=== PATIENT | male | born 1930 | race Caucasian/White ===

== ENCOUNTER 2019-05-05 08:07 | Day surgery (SDC) | payer MEDICARE ==
--- NOTE | 2019-04-29 10:49 | HP ---
AMENDED REPORT NOW INCLUDES DESIGNATED COSIGNER PREOPERATIVE HISTORY AND PHYSICAL: DATE OF SURGERY/ADMISSION: 05/05/19 DATE OF OFFICE VISIT/ENCOUNTER: 04/27/19 ATTENDING SURGEON: Chasity Salcido MD * (DICTATED BY KELLI DE LA GARZA) PROCEDURE: Left wrist carpal tunnel release, ulnar nerve decompression at left elbow. HISTORY OF PRESENT ILLNESS: This is an 88-year-old male who complains of numbness and tingling in his left arm. Recently, he had a nerve conduction study that showed an ulnar neuropathy of the left elbow and a moderate-to- severe carpal tunnel syndrome at the left wrist. When he uses his left arm, especially for doing activities around the yard like mowing the grass, this aggravates his symptoms. If he lets his arm relaxed, he feels a little bit better. He feels numbness in his hand and pain up his arm when he rests his elbow on something. He also feels numbness in his hand when leaning on his elbow. He had a carpal tunnel release on the right side in the past and has done quite well with that. He has now consented to proceed with surgical intervention for his left arm. PAST MEDICAL HISTORY: 1. History of prostate cancer. 2. Extranodal catheter following prostatectomy. 3. Memory problems. PAST SURGICAL HISTORY: 1. Prostatectomy. 2. Right carpal tunnel release x2. 3. Right shoulder arthroscopy. 4. Hernia repair. CURRENT MEDICATIONS: 1. Nabumetone b.i.d. 2. Aricept 10 mg daily. 3. Multivitamin daily. 4. Namenda 10 mg daily. 5. AREDS 2 tabs b.i.d. ALLERGIES: CIPROFLOXACIN, reaction unknown. FAMILY MEDICAL HISTORY: Cancer, diabetes. SOCIAL HISTORY: The patient is retired. He is a former smoker, he quit in 1969 , prior to that he smoked a pack per day for 20 years. He denies recreational drug use and does not drink alcohol. REVIEW OF SYSTEMS: Negative for general, cephalic, cardiovascular, respiratory , GI, , other musculoskeletal, integumentary, endocrine, neurologic, and hematologic symptoms. Infectious Disease: Negative for MRSA, hepatitis C, HIV. PHYSICAL EXAMINATION GENERAL: Well-developed, well-nourished 88-year-old male, in no acute distress. VITAL SIGNS: Height 5 feet 7 inches, weight 188 pounds, pulse rate 66, blood pressure 128/58. HEENT: Normocephalic, atraumatic. Pupils are equal, round, and reactive to light and accommodation. Extraocular movements are intact. Throat is clear. NECK: Supple. No palpable lymph nodes. PULMONARY: Lungs are clear to auscultation bilaterally. No wheezes, rales, or rhonchi. CARDIOVASCULAR: Regular rate and rhythm. S1, S2. No murmurs, rubs, or gallops. No edema. ABDOMEN: Positive bowel sounds, soft, nontender. MUSCULOSKELETAL: On exam of his left upper extremity, he has positive Tinel sign at the median nerve at the wrist. He has first dorsal space interosseous wasting and weakness with finger abduction. He also has weakness with thumb abduction. Negative Tinel sign at the ulnar nerve at the wrist, but he has a slightly positive Tinel sign of the ulnar nerve at the elbow. He has good motion in his elbow, in wrist, and fingers. NEUROLOGIC: Alert and oriented x3. Cranial nerves II through XII are intact. SKIN: Intact. IMAGING STUDIES: EMG nerve conduction study shows carpal tunnel syndrome at the left wrist and ulnar neuropathy at the left elbow. IMPRESSION: As above. PLAN: The patient is scheduled to undergo a left wrist carpal tunnel release, ulnar nerve decompression at the left elbow with Dr. Salcido on 05/05/19. He will return to the office 10 days postop for followup and suture/staple removal. A prescription for Vona was e-scribed to the patient's pharmacy for postoperative pain management. KELLI DE LA GARZA [id number]/[facility] #: [id number] TRUE
[~2019-05-05 08:07] MED LIST: Buffered Lidocaine 1% SYRIN* 1 ML/SYRINGE INTRADERM ONE; Dexamethasone IV* 4 MG/ML 1 ML (4 MG) IV SLOW PU ONE; Famotidine IV* 10 MG/ML 2 ML (20 mg) IV ONE; Lactated Ringers 1000 ML Bag* 1,000 ML IV SCH
[2019-05-05] MEDS ORDERED: Dexamethasone IV* 4 MG/ML 1 ML (4 MG) ONE (08:12)
[2019-05-05] MEDS ORDERED: Famotidine IV* 10 MG/ML 2 ML (20 mg) ONE (08:13)
[2019-05-05] MEDS ORDERED: ceFAZolin 2 GM in NS PREMIX(*) 2 GM/100 ML BAG IVPB ONE (08:13)
[2019-05-05] MEDS ORDERED: fentaNYL* 50 MCG/ML 2 ML VIAL (100 MCG VIAL) ONE (08:48)
[2019-05-05] MEDS ORDERED: Lidocaine 1% INJ* 10 MG/ML 30 ML SDV ONE (09:20)
[2019-05-05] MEDS ORDERED: Bupivacaine 0.5% SDV PF* 30ML VIAL ONE (09:21)
[2019-05-05] MEDS ORDERED: Propofol* 10 MG/ML 20 ML BTL ONE (09:53)
[2019-05-05] MEDS ORDERED: Lidocaine 2% PF * 5 ML VIAL ONE (09:53)
[2019-05-05] MEDS ORDERED: Naloxone* 0.4 MG/ML 1 ML VIAL IV PRN (09:55)
[2019-05-05 10:32] VITALS: BP 115/48
--- NOTE | 2019-05-05 17:20 | OP ---
DATE OF OPERATION: 05/05/19 - [facility] DATE OF : [birth year] SURGEON: Chasity Salcido MD. ASSISTANT MECHANIC: KELLI Valles. ANESTHESIA: Local MAC. PRE-OP DIAGNOSES: Carpal tunnel syndrome on the left and ulnar nerve compression of the left elbow. POST-OP DIAGNOSES: Carpal tunnel syndrome on the left and ulnar nerve compression of the left elbow. OPERATIVE PROCEDURE: Left carpal tunnel release and ulnar nerve decompression at the elbow. ESTIMATED BLOOD LOSS: Zero. TOURNIQUET TIME: About 40 minutes. INDICATION FOR PROCEDURE: Jaylon is an 88-year-old man who has numbness and tingling in his left hand. Nerve conduction studies show ulnar nerve compression of the left elbow and median nerve compression at the left wrist. He presents for left carpal tunnel release at the wrist and left ulnar nerve decompression of the elbow. DESCRIPTION OF PROCEDURE: The patient was brought to the operating room, was given a sedation anesthetic and a local infiltration total of 20 cc of 1% plain lidocaine, half at the left hand and half at the left elbow. The skin of his upper extremity was prepped and draped in the usual sterile fashion. The hand and forearm were exsanguinated and the tourniquet elevated to 250 mmHg. A longitudinal incision was made in the palm in line with the ring finger. We dissected through the subcutaneous tissue down to the transverse carpal ligament. The ligament was divided sharply with a knife and then more proximally with the scissors. The nerve was dissected free from the surrounding tissue and there was an area of moderate compression at the mid portion of the ligament. The wound was irrigated and the skin edges were reapproximated with 4-0 nylon suture. Next, a curvilinear incision was made centered between the medial epicondyle on the tip of the olecranon process. We dissected through the subcutaneous tissue down to the ulnar nerve more proximal to the elbow joint and was completely released proximally and then through the cubital tunnel and into the FCU muscle. The superficial and deep portion of the FCU fascia was divided. The medial intermuscular septum was divided as well. The majority of the compression was through the cubital tunnel. The wound was irrigated and the subcutaneous tissue was closed with 3-0 Vicryl suture. The skin edges were reapproximated with 4-0 nylon suture. The wounds were dressed with Xeroform, 4x4, Webril, and an Froylan wrap. The patient tolerated the procedure well and was brought to the recovery room in good condition. [id number]/[facility] #: [id number] TRUE
== END 2019-05-05 10:55 | disposition home or self-care (01) ==
LOC: OREAST 08:07
PROVIDERS: ATTEND Orthopaedic Surgery
DX: G56.02 Carpal tunnel syndrome, left upper limb (principal); G56.22 Lesion of ulnar nerve, left upper limb; Z87.891 Personal history of nicotine dependence; M19.90 Unspecified osteoarthritis, unspecified site; Z85.46 Personal history of malignant neoplasm of prostate
CPT/HCPCS: J0690; J1100; J2704; J3010; J3490